=== PATIENT | female | born 1960 | race American Indian/Alaskan Native ===

== ENCOUNTER 2017-12-02 11:50 | Emergency (ER) | payer MEDICARE ==
[2017-12-02 12:44] VITALS: BP 155/93
[2017-12-02] MEDS ORDERED: TORADOL IM ONE (13:21)
[2017-12-02] MEDS ORDERED: PERCOCET 5/325 PO ONE (13:22)
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
== END 2017-12-02 13:55 | disposition home or self-care (01) ==
LOC: ED 11:50
DX: M54.42 Lumbago with sciatica, left side (principal); I10 Essential (primary) hypertension; E11.40 Type 2 diabetes mellitus with diabetic neuropathy, unspecified; M06.9 Rheumatoid arthritis, unspecified; J43.9 Emphysema, unspecified; F17.200 Nicotine dependence, unspecified, uncomplicated
CPT/HCPCS: 96372; 99283; J1885